=== PATIENT | female | born 1955 | race Caucasian/White ===

== ENCOUNTER 2023-07-15 08:09 | Outpatient (REF) | payer MEDICARE, SELFPAY ==
[2023-07-15 14:50] LABS: Alanine Aminotransferase 18 U/L (0-31); Albumin Level 4.2 g/dL (3.5-5.0); Alkaline Phosphatase 70 U/L (39-117); Aspartate Amino Transferase 16 U/L (5-31); Bilirubin Direct 0.1 mg/dL (0.0-0.5); Bilirubin Total 0.3 mg/dL (0.0-1.0); Cholesterol 127 mg/dL (<200); HDL Cholesterol 39 mg/dL (>40); LDL Cholesterol Calculated 63 mg/dL (<100); Total Protein 7.3 g/dL (6.5-8.0); Triglycerides 129 mg/dL (<150)
[2023-07-15 15:05] LABS: TSH reflex Free T4 0.98 uIU/mL (0.32-4.0)
== END 2023-07-15 08:10 | disposition home or self-care (01) ==
LOC: HO.CHCLDS 08:09
PROVIDERS: Visit Provider Pediatrics
DX: E11.9 Type 2 diabetes mellitus without complications (principal)
CPT/HCPCS: 36415; 80061; 80076; 84443